=== PATIENT | female | born 1965 ===

== ENCOUNTER 2017-04-22 18:19 | Emergency (ER) | payer OTHER ==
[~2017-04-22] VITALS: Ht 160 cm; Wt 97.7 kg
[2017-04-22] MEDS ORDERED: ASPI81 PO (19:16)
[2017-04-22] MEDS ORDERED: METO25 PO (19:16)
[2017-04-22] MEDS ORDERED: AMLO-512 PO (19:16)
[2017-04-22] MEDS ORDERED: LOSA25TA21 PO (19:16)
[2017-04-22] MEDS ORDERED: METF500T4 PO (19:16)
[2017-04-22 19:17] LABS: GLUCOSE,POINT OF CARE 172 MG/DL (70-110)
[2017-04-22] MEDS ORDERED: ACETAMINOPHEN/CODEINE 300-30 MG TABLET PO ONE (20:45)
[2017-04-22 21:01] LABS: APPEARANCE,URINE CLEAR (CLEAR); BILIRUBIN,URINE NEGATIVE (NEGATIVE); GLUCOSE, URINE (UA) NEGATIVE (NEGATIVE); KETONES,URINE NEGATIVE (NEGATIVE); LEUKOCYTE ESTERASE ,URINE NEGATIVE (NEGATIVE); NITRATE,URINE NEGATIVE (NEGATIVE); OCCULT BLOOD,URINE TRACE (NEGATIVE); PROTEIN,URINE NEGATIVE (NEGATIVE); UROBILINOGEN,URINE 0.2 mg/dL (<=1.0)
[2017-04-22 21:11] LABS: BACTERIA,URINE None Seen /HPF (None Seen); SQUAMOUS EPITHELIAL CELL,UR Few /LPF (None Seen); WBC,URINE None Seen /HPF (0-5)
[2017-04-22 21:41] LABS: INFLUENZA TYPE A POSITIVE FOR TYPE A (NEGATIVE); INFLUENZA TYPE B NEGATIVE FOR TYPE B (NEGATIVE)
[2017-04-22] MEDS ORDERED: OSELTAMIVIR PHOSPHATE 75 MG CAPSULE PO ONE (21:45)
[2017-04-22 22:05] VITALS: BP 132/90
== END 2017-04-22 22:30 | disposition home or self-care (01) ==
LOC: EMS 18:19
DX: J11.1 Influenza due to unidentified influenza virus with other respiratory manifestations (principal); I10 Essential (primary) hypertension; E11.9 Type 2 diabetes mellitus without complications
CPT/HCPCS: 82962; 87804; 99284